=== PATIENT | male | born 1955 | race Caucasian/White ===

== ENCOUNTER → 2016-10-06 | Day surgery (SDC) | payer OTHER ==
[~2016-10-06] MED LIST: AFRIN15 ML; ASPIRIN81 M2 PO; ATENOLOL PO; ATORVASTATIN CA10 MG PO; DESOXIMETASONE15 GM TOP; FLOMAX0.4 M1; HCTZ PO; HUMIRA; OMEPRAZOLE40 M1 PO; PRILOSEC PO
--- NOTE | ~2016-10-06 | OR ---
Unit #: [id number] #: [id number] Patient: KEVIN DEVI [id number] [address] [place], [place] [address] [id number] O MR#: [id number] NAME: KEVIN DEVI. ROOM: Date of Procedure: 10/06/2016 Admission Date: 10/06/2016 Surgeon: Delgado Elliott M.D. : 1955 Attending Physician: Delgado Elliott M.D. Primary Care Physician: Reinier Dubose Jr., M.D. OPERATIVE REPORT PREOPERATIVE DIAGNOSES Colorectal cancer screening. The patient has family history of colon cancer. This is his first examination. PROCEDURES PERFORMED 1. Colonoscopy and polypectomy. 2. Colonoscopy and argon plasma coagulation ablation. 3. Colonoscopy and submucosal injection. POSTOPERATIVE DIAGNOSES 1. The patient had [id number] sigmoid and descending colon diverticulosis. 2. There was a large true flat sessile adenoma located on ileocecal valve. This was about 2.5 to 3 cm in size. It was removed using technique of piecemeal polypectomy after submucosal injection of methylcellulose and methylene blue and elevation of the polyp bed. The gap left by polypectomy was closed using an Endoclip and the residual tissue at the edges was ablated using argon plasma coagulation therapy. Excellent hemostasis was achieved. The retrieved polyps were then sent for histology. Rest of the examination up to cecum and terminal ileum was normal. The quality of the prep was excellent. RECOMMENDATIONS Follow up the results of polyp histology and based upon the latter, consider a surveillance examination in a couple of years. SEDATION USED MAC. DESCRIPTION OF PROCEDURE Following detailed explanation of the potential risks and complications of a colonoscopy, namely perforation, bleeding, and complication related to sedation, the patient was brought to GI lab and laid in the left lateral decubitus position. A digital rectal examination was performed, which was normal. Lubricated tip of the Olympus video colonoscope was inserted through the anus and advanced under direct vision. The scope was advanced past rectosigmoid into descending colon. Multiple small to medium-sized diverticula were seen in this area. The scope tip was then navigated all the way up to cecum with visualization of the ileocecal valve and the appendiceal orifice. Preparation was excellent with good visualization and photodocumentation was obtained. Last few inches of the terminal ileum were also visualized after intubation of the ileocecal valve and Unit #: [id number] #: [id number] Patient: KEVIN DEVI appeared normal. Successive segments of the colonic mucosa were examined upon withdrawal. The patient was noted to have a large true flat sessile adenoma on top of the ileocecal valve. This was about 2.5 to 3 cm in size. After careful assessment, it was decided to remove the entire adenoma using submucosal elevation of the polyp bed. This was done after injecting with methylcellulose drops mixed with methylene blue. The entire polyp was then removed using the technique of piecemeal polypectomy. Any residual polyp tissue on the edges was ablated using argon plasma coagulation therapy. The gap left by polypectomy was closed using an Endoclip. Excellent hemostasis was achieved and photodocumentation was obtained. No additional polyps were noted. Other than the left-sided diverticula, no other abnormalities were found. The patient did not have any hemorrhoids at the anal verge. The scope was then withdrawn and the patient returned to the recovery area. He tolerated the procedure without any postprocedure complications. Dictated by... David De Leon TD: 10/06/2016 22:24 JOB #: [id number] OPERATIVE REPORT Page 1 of 1 X Delgado Elliott MD X PROCEDURE OPERATIVE NOTE
== END | disposition home or self-care (01) ==
LOC: COPS 12:06
DX: Z12.11 Encounter for screening for malignant neoplasm of colon (principal); D12.0 Benign neoplasm of cecum; K57.30 Diverticulosis of large intestine without perforation or abscess without bleeding; K21.9 Gastro-esophageal reflux disease without esophagitis; M19.90 Unspecified osteoarthritis, unspecified site; Z80.0 Family history of malignant neoplasm of digestive organs; Z88.8 Allergy status to other drugs, medicaments and biological substances; Z79.82 Long term (current) use of aspirin; Z79.899 Other long term (current) drug therapy; Z90.89 Acquired absence of other organs; Z98.890 Other specified postprocedural states
CPT/HCPCS: 88305; J2250; Q9968